=== PATIENT | female | born 1975 ===

== ENCOUNTER 2017-12-06 08:37 | Day surgery (SDC) | payer BC ==
[2017-11-29 15:25] VITALS: BMI 28.1
[2017-12-06 09:24] LABS: HEMOGLOBIN 10.7 g/dL (12.0-16.0); MEAN CELL VOLUME 83.5 fl (81.0-99.0); MEAN CORPUSCULAR HEMOGLOBIN 26.9 pg (27.0-31.0); MEAN CORPUSCULAR HGB CONC 32.3 g/dL (33.0-37.0); RBC 3.99 Mil/uL (3.80-5.20); RED CELL DISTRIBUTION WIDTH 17.2 % (11.5-14.5); WHITE BLOOD COUNT 5.1 K/uL (4.8-10.8)
[2017-12-06] MEDS ORDERED: ePHEDrine 50 mg/ml Inj ONE (10:39)
[2017-12-06] MEDS ORDERED: Rocuronium 10 mg/ml (5 ml) ONE ×2 (10:39→12:41)
[2017-12-06] MEDS ORDERED: Propofol 10 mg/ml Inj (20 ML) ONE (10:39)
[2017-12-06] MEDS ORDERED: Succinylcholine 200 mg/10 ml Inj IV ONE (10:40)
[2017-12-06] MEDS ORDERED: Midazolam 2 MG/2 ML VIAL ONE (11:04)
[2017-12-06] MEDS ORDERED: Lactated Ringer's 1,000 ML IV ONE ×2 (11:20→11:30)
[2017-12-06] MEDS ORDERED: Sterile Water 10 ML IV ONE (11:45)
[2017-12-06] MEDS ORDERED: Neostigmine 1:1000 (1 mg/ml) Inj ONE (11:48)
[2017-12-06] MEDS ORDERED: Bupivacaine HCl 0.5% PF (10 ml) Inj IJ ONE ×2 (11:50)
[2017-12-06] MEDS ORDERED: HEMOSTATIC MATRIX 10 ML DIS.NEEDLE TOP ONE ×2 (13:50→14:00)
[2017-12-06] MEDS: SULFANILAMIDE (AVC) VAG CREAM VG ONE ×2 (13:52→14:10)
[2017-12-06] MEDS ORDERED: Oxycodone/Acetaminophen 5/325 mg Tab PO PRN (14:24)
[2017-12-06] MEDS: HYDROmorphone 0.5 mg/0.5 ml ISec IVP PRN ×3 (14:26→14:53)
[2017-12-06] MEDS ORDERED: Naloxone 0.4 mg/ml Inj (Adult) IVP PRN (14:30)
[2017-12-06] MEDS ORDERED: Lactated Ringer's 500 ML IV SCH (15:45)
[2017-12-06] MEDS: Lactated Ringer's 1,000 ML IV SCH (18:53)
[2017-12-07 07:51] LABS: HEMOGLOBIN 8.7 g/dL (12.0-16.0); MEAN CELL VOLUME 83.2 fl (81.0-99.0); MEAN CORPUSCULAR HEMOGLOBIN 27.2 pg (27.0-31.0); MEAN CORPUSCULAR HGB CONC 32.6 g/dL (33.0-37.0); RBC 3.22 Mil/uL (3.80-5.20); RED CELL DISTRIBUTION WIDTH 17.3 % (11.5-14.5); WHITE BLOOD COUNT 5.3 K/uL (4.8-10.8)
[2017-12-07 08:33] VITALS: BP 107/71; PULSE 74; RESP 18; TEMP 98.7; O2SAT 97
--- NOTE | 2017-12-07 09:14 | CP.SDSHP ---
Same Day Surgery H & P - Allergies Allergies: Allergies No Known Allergies Allergy (Verified 10/10/17 13:00) - Physical Exam Vital Signs: Vital Signs 12/07/17 12/07/17 04:00 08:32 Temperature 99.2 F 98.7 F Pulse Rate 88 74 Respiratory 20 18 Rate Blood Pressure 100/61 107/71 O2 Sat by Pulse 99 97 Oximetry Short Stay Discharge - Short Stay Discharge Admitting Diagnosis/Reason for Visit: N92.0/ N92.6/ Referrals: Shaik Granados MD [Primary Care Provider] - Additional Instructions (Diet, Activity): Patient doing well tolerating diet and pain well controlled Vital signs stable afebrile Incision clean dry and intact Abdomen soft Extremities no Homans Postop day 1 Patient cleared for discharge Prescriptions provided by PMD Patient to follow up with Dr. Carias in 1 week No heavy lifting nothing per vagina
[2017-12-07] MEDS: Lactated Ringer's 1,000 ML IV SCH ×2 (10:42→10:43)
--- NOTE | 2017-12-07 13:01 | CARD ---
APPROVED REPORT EKG Measurement Heart [id number] <Conclusion> Normal sinus rhythm Normal ECG
--- NOTE | 2018-01-01 07:03 | OP ---
PROCEDURE DATE: 12/06/2017 PREOPERATIVE DIAGNOSES: A 42-year-old female with history of symptomatic fibroid, menorrhagia, chronic pelvic pain, irregular menstrual period and failure of medical and surgical procedure. POSTOPERATIVE DIAGNOSES: A 42-year-old female with history of symptomatic fibroid, menorrhagia, chronic pelvic pain, irregular menstrual period and failure of medical and surgical procedure. PROCEDURES: A robotic-assisted total laparoscopic hysterectomy as well as bilateral salpingo-oophorectomy, ureteral stent, and cystoscopy. ANESTHESIA: General. ESTIMATED BLOOD LOSS: Minimal. URINE OUTPUT: Clear urine with little tints of green due to the IC green. SPECIMEN: Uterus, the cervix as well as the tubes and the ovaries. COMPLICATIONS: None. SURGEON: Kelly Carias MD. INTERNATIONAL ACCOUNTANT: Dr. Carrington and also Dr. Brown. DESCRIPTION OF PROCEDURE: The patient was informed of the risk factor, benefits and alternative of procedure. Risk factors have included infection, bleeding, damage to surrounding organ or tissue, possible injury to the small bowel, fistula formation, and and complication from anesthesia. All questions were answered and informed consent was obtained. Risk factors were explained but not limited to. Once the consent was obtained, she was then taken to the operating room where she was identified as herself, placed in dorsal lithotomy position where general anesthesia was administrated without difficulty. She was prepped and draped in normal sterile fashion. In that particular point, a weighted speculum was placed into the vagina, but prior to that we decided to do the cystoscopy under Dr. Brown's guidance, so we used a 0-degree cystoscopy scope and which we identified bilateral ureters, inserted a 14-Telugu ureteral stent and then infused IC green in bilateral ureters. Excellent hemostasis was noted. It was basically performed and ordered to identify the ureter during the surgical procedure. Upon doing that, the cystoscopy was then removed and Solitario catheter was placed. A weighted speculum was placed into the vagina. The anterior lip of the cervix was grasped with a single-tooth tenaculum with the cervix and was dilated to accommodate the VCare uterine manipulator, which was introduced in the uterine cavity with the intrauterine balloon insufflation and approximately five colpotomy cup was placed around the cervix, which is particular time the speculum, the tenaculum and all instruments around the vagina were removed. Attention was then turned to the abdominal cavity where an 8 mm incision was made approximately two fingerbreadths above the umbilicus and a Veress needle was introduced into the abdominal cavity. Intraabdominal placement was confirmed by approximate pressure reading. The abdomen was insufflated with CO2 gas. The Veress needle was then removed and the 8-mm trocar was introduced. At that point, the camera was introduced confirming intraabdominal placement. It was basically noted that she had large multiple fibroids. Her uterus was approximately about late 15 weeks, it was bulky in appearance. There were some suspicious of vaginomycosis, otherwise her tubes were normal. The patient was then placed in Trendelenburg position. The bowel was displaced superiorly with robotic trocar arm placed in the left lower quadrant and in the right lower quadrant respectively under direct visualization accommodating the 8-mm robotic trocar site. incision was made in the right upper quadrant with a 5-mm used in order to evacuate like a 5 mm for the gas evacuator. The Da Christopher robot was subsequently docked without any complication. After the surgical consult, the surgery began with identifying the utero-ovarian ligaments on the other size. These were then cauterized and transected with a bipolar cautery and then Endoseal. This was followed by the round ligaments, which was cauterized transected in a similar fashion. The anterior lip of the broad ligament was entered and the bladder flap was dissected off the lower uterine segment and the cervix without any complication. The uterine arteries bilaterally was skeletonized, cauterized and transected. At this point, the ureter was blanched effectively demonstrated that the blood supply to the uterus had been terminated. The colpotomy was made with the monopolar spatula and carried around the entire cervicovaginal junction until the cervix and the uterus were released from this morning more ringing to the vagina. The cervix and the uterus was pulled into the vagina were it provided no more occlusion while I proceeded to close the vaginal cuff. So the uterus and the ovaries and the tubes were removed from the vagina and excellent hemostasis was noted in that particular instance and the V-lock was used to close the vaginal cuff. Excellent hemostasis was noted. The abdomen was irrigated and cleaned of all clots and debris. The pedicles were examined and note to be hemodynamically stable. The ureter was examined bilaterally noted to be peristalsing normally, which again was basically utilizing the robot and you can see the IC green, so bilateral uterus were identified, which was excellent. In that particular instance, the bladder was draining. All instruments were subsequently removed from the patient's abdomen and the vagina. The foreskin incision was then closed with 4-0 Monocryl for excellent hemostasis and reapproximation. The patient was taken to the recovery in stable condition, awake and oriented, and the plan was for discharge home the next following morning. Surgery was discussed in depth with the patient's family and all questions were answered. Kelly Carias MD
== END 2017-12-07 14:01 | disposition home or self-care (01) ==
LOC: H.OPSURG 08:37 → H.MEDSURG1 18:38 → H.OPSURG 12-07 14:01
PROVIDERS: ATTEND Obstetrics & Gynecology
DX: N92.0 Excessive and frequent menstruation with regular cycle (principal); R10.2 Pelvic and perineal pain; N72 Inflammatory disease of cervix uteri; G89.29 Other chronic pain; D25.9 Leiomyoma of uterus, unspecified
CPT/HCPCS: 36415; 52005; 58571; 71046; 85027; 86850; 86900; 88305; 88307; 93005; C1729; C2615; J0131; J0330; J0690; J1170; J1885; J2001; J2250; J2274; J2405; J2704; J2710; J2765; J3010; J7030; J7120